=== PATIENT | male | born 1960 | race African-American/Black ===

== ENCOUNTER 2022-06-08 18:03 | Inpatient (IN) | payer OTHER, MEDICAID ==
[~2022-06-08] VITALS: Ht 180.3 cm; Wt 72.6 kg
[~2022-06-08 18:03] MED LIST: ETOMIDATE 2MG/ML 10ML VIAL IV ONE; SODIUM CHLORIDE 0.9% 10ML VIAL ONE; VECURONIUM BROMIDE 10 MG/VIAL IV ONE
[2022-06-08] MEDS ORDERED: PROPOFOL 10MG/ML 100ML 100 ML IV STA (18:54)
[2022-06-08] MEDS ORDERED: DIPHENHYDRAMINE 50MG/ML VIAL IV ONE (19:00)
[2022-06-08] MEDS ORDERED: SODIUM CHLORIDE 0.9% 1,000 ML IV ONE (19:00)
[2022-06-08] MEDS ORDERED: FAMOTIDINE 20MG/2ML VIAL IV ONE (19:00)
[2022-06-08] MEDS ORDERED: METHYLPREDNISOLONE SOD SUCC 125 MG/2 ML VIAL IV ONE (19:00)
[2022-06-08] MEDS ORDERED: EPINEPHRINE 1:1000 1 MG/ML AMP INJ ONE (19:00)
[2022-06-08] MEDS ORDERED: ONDANSETRON HCL 4MG/2ML INJ IV ONE (19:15)
[2022-06-08 19:25] LABS: BASOPHILS % 1.6 % (0.0-2.0); EOSINOPHILS % 6.2 % (0.0-5.0); HEMATOCRIT. 36.9 % (42.0-52.0); HEMOGLOBIN. 11.7 g/dL (14.0-18.0); LYMPHOCYTES % 53.6 % (20.0-50.0); MEAN CORPUSCULAR VOLUME 85.1 fL (80.0-94.0); MEAN PLATELET VOLUME 7.9 fl (7.4-10.4); NEUTROPHILS % 26.6 % (40.0-76.0); PLATELET 258 x1000/uL (130-400); RED BLOOD CELL COUNT 4.33 mill/uL (4.7-6.1); RED CELL DISTRIBUTION WIDTH 13.7 % (11.6-14.6)
[2022-06-08 19:34] LABS: CHLORIDE 109 mEq/L (98-107)
[2022-06-08] MEDS ORDERED: FAMOTIDINE 20MG/2ML VIAL IV NR (21:00)
[2022-06-08 21:24] LABS: BG BASE EXCESS -4.8 mmol/L (-2.0-2.0); BG CARBOXYHEMOGLOBIN 0.3 % (0.5-1.5); BG DEOXYHEMOGLOBIN 0.4 % (0.0-5.0); BG FRACTION INSPIRED OXYGEN 100; BG HCO3 ACT 21.1 mmol/L (22.0-26.0); BG METHEMOGLOBIN 0.3 % (0.0-1.5); BG OXYGEN SATURATION 99.6 % (92.0-98.5); BG PCO2 42.1 mmHg (35.0-45.0); BG PH 7.318 (7.350-7.450); BG PO2 393.8 mmHg (75.0-100.0); BG SAMPLE SITE LEFT RADIAL; BG TOTAL HEMOGLOBIN 11.7 g/dL (12.0-18.0); BG VENT MODE VENT - AC
[2022-06-08] MEDS ORDERED: FENTANYL 2500MCG/250ML PMX 250 ML IV ONE (21:30)
[2022-06-08] MEDS ORDERED: HYDRALAZINE 20MG/ML VIAL IV ONE (21:30)
[2022-06-08] MEDS ORDERED: MIDAZOLAM HCL 100 MG in SODIUM CHLORIDE 0.9% 80 ML IV NR (21:30)
[2022-06-08] MEDS ORDERED: MIDAZOLAM HCL 100 MG in DEXT 5% WATER 80 ML IV ONE (21:30)
[2022-06-08] MEDS ORDERED: ONDANSETRON HCL 4MG/2ML INJ IV PRN (23:30)
[2022-06-09] VITALS (63 sets, daily range): BP systolic 77–223; BP diastolic 48–119
[2022-06-09] MEDS: METHYLPREDNISOLONE SOD SUCC 125 MG/2 ML VIAL IV SCH ×3 (06:53→21:41)
[2022-06-09] MEDS ORDERED: FAMOTIDINE 20MG/2ML VIAL IV SCH (09:00)
[2022-06-09 09:09] LABS: BG BASE EXCESS -5.8 mmol/L (-2.0-2.0); BG CARBOXYHEMOGLOBIN 0.2 % (0.5-1.5); BG FRACTION INSPIRED OXYGEN 40; BG HCO3 ACT 19.5 mmol/L (22.0-26.0); BG METHEMOGLOBIN 0.2 % (0.0-1.5); BG OXYHEMOGLOBIN 98.6 % (94.0-97.0); BG PCO2 37.9 mmHg (35.0-45.0); BG PO2 149.8 mmHg (75.0-100.0); BG SAMPLE SITE RIGHT RADIAL; BG VENT MODE VENT - AC
[2022-06-09] MEDS ORDERED: CABE0.5T2 PO (09:16)
[2022-06-09] MEDS ORDERED: LISI-649 PO (09:16)
[2022-06-09] MEDS ORDERED: FENTANYL 2500MCG/250ML PMX 250 ML IV PRN (10:00)
[2022-06-09] MEDS: MIDAZOLAM HCL 100 MG in SODIUM CHLORIDE 0.9% 80 ML IV PRN (10:53)
[2022-06-09] MEDS: IPRATROPIUM/ALBUTEROL 0.5-3(2.5)MG/3ML NEB HHN SCH ×2 (10:55→13:26)
[2022-06-09 11:34] LABS: BASOPHILS % 0.3 % (0.0-2.0); HEMATOCRIT. 39.6 % (42.0-52.0); HEMOGLOBIN. 12.5 g/dL (14.0-18.0); LYMPHOCYTES % 16.8 % (20.0-50.0); MEAN CORPUSCULAR HEMOGLOBIN 27.4 pg (28.0-32.0); MEAN CORPUSCULAR VOLUME 86.9 fL (80.0-94.0); MEAN PLATELET VOLUME 8.5 fl (7.4-10.4); NEUTROPHILS % 80.9 % (40.0-76.0); PLATELET 254 x1000/uL (130-400); RED BLOOD CELL COUNT 4.56 mill/uL (4.7-6.1); RED CELL DISTRIBUTION WIDTH 14.1 % (11.6-14.6)
[2022-06-09 16:25] LABS: BG CARBOXYHEMOGLOBIN 0.3 % (0.5-1.5); BG DEOXYHEMOGLOBIN 2.5 % (0.0-5.0); BG FRACTION INSPIRED OXYGEN 40; BG HCO3 ACT 20.1 mmol/L (22.0-26.0); BG METHEMOGLOBIN 0.3 % (0.0-1.5); BG OXYGEN SATURATION 97.5 % (92.0-98.5); BG OXYHEMOGLOBIN 96.9 % (94.0-97.0); BG PCO2 46.6 mmHg (35.0-45.0); BG PH 7.253 (7.350-7.450); BG PO2 107.9 mmHg (75.0-100.0); BG SAMPLE SITE RIGHT BRACHIAL; BG TOTAL HEMOGLOBIN 13.1 g/dL (12.0-18.0); BG VENT MODE VENT - AC
[2022-06-09] MEDS ORDERED: SODIUM BICARBONATE 8.4% 1 MEQ/ML 50ML SYR IV NR ×2 (17:00→22:30)
[2022-06-09] MEDS ORDERED: NOREPINEPHRINE 8MG/250ML PMX 250 ML IV ONE (17:15)
[2022-06-09] MEDS ORDERED: LACTATED RINGERS 500 ML IV SCH (17:15)
[2022-06-09] MEDS ORDERED: PHENYLEPHRINE 50 MG in DEXT 5% WATER 245 ML IV PRN (17:15)
[2022-06-09] MEDS ORDERED: NOREPINEPHRINE 8 MG in DEXTROSE 5% WATER 250 ML IV PRN (17:30)
[2022-06-09] MEDS ORDERED: LACTATED RINGERS 500 ML IV ONE (17:30)
[2022-06-09] MEDS: MONTELUKAST SODIUM 10MG TABLET PO SCH (17:49)
[2022-06-09 18:12] LABS: BG BASE EXCESS -3.8 mmol/L (-2.0-2.0); BG CARBOXYHEMOGLOBIN 0.3 % (0.5-1.5); BG DEOXYHEMOGLOBIN 2.6 % (0.0-5.0); BG FRACTION INSPIRED OXYGEN 40; BG HCO3 ACT 23.1 mmol/L (22.0-26.0); BG METHEMOGLOBIN 0.2 % (0.0-1.5); BG OXYGEN SATURATION 97.4 % (92.0-98.5); BG OXYHEMOGLOBIN 96.9 % (94.0-97.0); BG PCO2 49.5 mmHg (35.0-45.0); BG PH 7.287 (7.350-7.450); BG PO2 108.4 mmHg (75.0-100.0); BG SAMPLE SITE RIGHT RADIAL; BG TOTAL HEMOGLOBIN 12.2 g/dL (12.0-18.0); BG VENT MODE VENT - AC
[2022-06-09] MEDS ORDERED: DOPAMINE 400MG/250ML PREMIX 250 ML IV PRN (19:15)
[2022-06-09] MEDS: ATROPINE SULFATE 1MG/ML VIAL IV NR (19:15)
[2022-06-09] MEDS: DOPAMINE 400MG/250ML PREMIX 250 ML IV PRN (19:42)
[2022-06-10] VITALS (65 sets, daily range): BP systolic 88–146; BP diastolic 59–111
[2022-06-10] MEDS: IPRATROPIUM/ALBUTEROL 0.5-3(2.5)MG/3ML NEB HHN SCH ×4 (00:25→20:57)
[2022-06-10] MEDS: DOPAMINE 400MG/250ML PREMIX 250 ML IV PRN (06:03)
[2022-06-10] MEDS: METHYLPREDNISOLONE SOD SUCC 125 MG/2 ML VIAL IV SCH ×3 (06:03→21:03)
[2022-06-10 06:24] LABS: BASOPHILS % 0.1 % (0.0-2.0); HEMATOCRIT. 36.4 % (42.0-52.0); HEMOGLOBIN. 11.5 g/dL (14.0-18.0); LYMPHOCYTES % 8.3 % (20.0-50.0); MEAN CORPUSCULAR HEMOGLOBIN 26.9 pg (28.0-32.0); MEAN CORPUSCULAR VOLUME 85.1 fL (80.0-94.0); MEAN PLATELET VOLUME 8.2 fl (7.4-10.4); MONOCYTES % 6.3 % (2.0-8.0); NEUTROPHILS % 85.3 % (40.0-76.0); PLATELET 233 x1000/uL (130-400); RED BLOOD CELL COUNT 4.28 mill/uL (4.7-6.1)
[2022-06-10] MEDS ORDERED: LIDOCAINE HCL/PF 1% 10 MG/ML 5ML VIAL ONE (08:16)
[2022-06-10 08:29] LABS: BG BASE EXCESS -1.4 mmol/L (-2.0-2.0); BG DEOXYHEMOGLOBIN 1.1 % (0.0-5.0); BG FRACTION INSPIRED OXYGEN 40; BG HCO3 ACT 22.2 mmol/L (22.0-26.0); BG METHEMOGLOBIN 0.3 % (0.0-1.5); BG OXYGEN SATURATION 98.9 % (92.0-98.5); BG OXYHEMOGLOBIN 98.6 % (94.0-97.0); BG PCO2 33.6 mmHg (35.0-45.0); BG PH 7.438 (7.350-7.450); BG PO2 169.3 mmHg (75.0-100.0); BG SAMPLE SITE RIGHT RADIAL; BG TOTAL HEMOGLOBIN 12.1 g/dL (12.0-18.0); BG VENT MODE VENT - AC
[2022-06-10] MEDS: FAMOTIDINE 20MG/2ML VIAL IV SCH (08:56)
[2022-06-10] MEDS ORDERED: CABERGOLINE 0.5 MG PO SCH (09:00)
[2022-06-10] MEDS: SODIUM CHLORIDE 0.45% 1,000 ML IV SCH ×2 (11:55→21:03)
[2022-06-10] MEDS: MONTELUKAST SODIUM 10MG TABLET PO SCH (17:02)
[2022-06-10 19:12] LABS: CLARITY URINE CLEAR (CLEAR); COLOR URINE YELLOW (YELLOW); KETONES URINE NEGATIVE (NEGATIVE); LEUKOCYTE ESTERASE URINE 2+ (NEGATIVE); NITRITE URINE NEGATIVE (NEGATIVE); OCCULT BLOOD URINE 3+ (NEGATIVE); PROTEIN URINE 1+ (NEGATIVE); SPECIFIC GRAVITY URINE 1.018 (1.005-1.030); UROBILINOGEN URINE 0.2 E.U./dL (0.2-1.0)
[2022-06-10] MEDS: ATROPINE SULFATE 1MG/ML VIAL IV NR (19:15)
[2022-06-11] VITALS (36 sets, daily range): BP systolic 87–161; BP diastolic 40–101
[2022-06-11] MEDS: IPRATROPIUM/ALBUTEROL 0.5-3(2.5)MG/3ML NEB HHN SCH ×4 (01:34→21:14)
[2022-06-11] MEDS: METHYLPREDNISOLONE SOD SUCC 125 MG/2 ML VIAL IV SCH (05:23)
[2022-06-11] MEDS: SODIUM CHLORIDE 0.45% 1,000 ML IV SCH ×3 (05:23→20:44)
[2022-06-11] MEDS: MIDAZOLAM HCL 100 MG in SODIUM CHLORIDE 0.9% 80 ML IV PRN (05:24)
[2022-06-11] MEDS: FAMOTIDINE 20MG/2ML VIAL IV SCH (08:20)
[2022-06-11 08:36] LABS: BG BASE EXCESS -2.3 mmol/L (-2.0-2.0); BG CARBOXYHEMOGLOBIN 0.3 % (0.5-1.5); BG FRACTION INSPIRED OXYGEN 35; BG HCO3 ACT 22.4 mmol/L (22.0-26.0); BG METHEMOGLOBIN 0.5 % (0.0-1.5); BG OXYHEMOGLOBIN 98.2 % (94.0-97.0); BG PCO2 37.6 mmHg (35.0-45.0); BG PH 7.392 (7.350-7.450); BG PO2 161.1 mmHg (75.0-100.0); BG SAMPLE SITE RIGHT RADIAL; BG VENT MODE VENT - AC
[2022-06-11 13:16] LABS: BG BASE EXCESS -1.7 mmol/L (-2.0-2.0); BG CARBOXYHEMOGLOBIN 0.3 % (0.5-1.5); BG DEOXYHEMOGLOBIN 2.7 % (0.0-5.0); BG HCO3 ACT 23.3 mmol/L (22.0-26.0); BG METHEMOGLOBIN 0.3 % (0.0-1.5); BG OXYGEN SATURATION 97.3 % (92.0-98.5); BG OXYHEMOGLOBIN 96.7 % (94.0-97.0); BG PCO2 40.4 mmHg (35.0-45.0); BG PH 7.379 (7.350-7.450); BG PO2 100.5 mmHg (75.0-100.0); BG SAMPLE SITE RIGHT RADIAL; BG TOTAL HEMOGLOBIN 10.4 g/dL (12.0-18.0); BG VENT MODE VENT - CPAP
[2022-06-11] MEDS ORDERED: IPRATROPIUM/ALBUTEROL 0.5-3(2.5)MG/3ML NEB HHN PRN (13:30)
[2022-06-11] MEDS: METHYLPREDNISOLONE SOD SUCC 40 MG/ML VIAL IV SCH (17:58)
[2022-06-11] MEDS: MONTELUKAST SODIUM 10MG TABLET PO SCH (18:00)
[2022-06-11] MEDS: ATROPINE SULFATE 1MG/ML VIAL IV NR (19:15)
[2022-06-12] VITALS (43 sets, daily range): BP systolic 88–155; BP diastolic 30–96
[2022-06-12] MEDS: IPRATROPIUM/ALBUTEROL 0.5-3(2.5)MG/3ML NEB HHN SCH ×4 (01:37→20:40)
[2022-06-12] MEDS: SODIUM CHLORIDE 0.45% 1,000 ML IV SCH (04:16)
[2022-06-12 05:47] LABS: HEMOGLOBIN. 9.2 g/dL (14.0-18.0); LYMPHOCYTES % 8.5 % (20.0-50.0); MEAN CORPUSCULAR HEMOGLOBIN 27.4 pg (28.0-32.0); MEAN CORPUSCULAR VOLUME 83.4 fL (80.0-94.0); MEAN PLATELET VOLUME 8.4 fl (7.4-10.4); MONOCYTES % 5.4 % (2.0-8.0); NEUTROPHILS % 86.1 % (40.0-76.0); PLATELET 160 x1000/uL (130-400); RED BLOOD CELL COUNT 3.36 mill/uL (4.7-6.1); RED CELL DISTRIBUTION WIDTH 13.4 % (11.6-14.6)
[2022-06-12 06:20] LABS: PHOSPHORUS 2.4 mg/dL (2.5-4.9)
[2022-06-12] MEDS: FAMOTIDINE 20MG/2ML VIAL IV SCH (08:20)
[2022-06-12] MEDS: METHYLPREDNISOLONE SOD SUCC 40 MG/ML VIAL IV SCH (08:21)
[2022-06-12] MEDS ORDERED: POTASSIUM-SODIUM PHOSPHATE POWDER PACKET PO NR (12:15)
[2022-06-12] MEDS: MONTELUKAST SODIUM 10MG TABLET PO SCH (18:44)
[2022-06-12] MEDS: ATROPINE SULFATE 1MG/ML VIAL IV NR (19:15)
[2022-06-13] VITALS (15 sets, daily range): BP systolic 125–173; BP diastolic 71–97
[2022-06-13] MEDS: IPRATROPIUM/ALBUTEROL 0.5-3(2.5)MG/3ML NEB HHN SCH ×2 (02:28→08:59)
[2022-06-13 06:20] LABS: BASOPHILS % 0.2 % (0.0-2.0); EOSINOPHILS % 0.1 % (0.0-5.0); HEMATOCRIT. 28.8 % (42.0-52.0); HEMOGLOBIN. 9.5 g/dL (14.0-18.0); LYMPHOCYTES % 18.4 % (20.0-50.0); MEAN CORPUSCULAR HEMOGLOBIN 27.7 pg (28.0-32.0); MEAN CORPUSCULAR VOLUME 84.1 fL (80.0-94.0); MEAN PLATELET VOLUME 8.6 fl (7.4-10.4); MONOCYTES % 6.9 % (2.0-8.0); NEUTROPHILS % 74.4 % (40.0-76.0); PLATELET 176 x1000/uL (130-400); RED BLOOD CELL COUNT 3.42 mill/uL (4.7-6.1); RED CELL DISTRIBUTION WIDTH 13.3 % (11.6-14.6)
[2022-06-13 07:00] LABS: PHOSPHORUS 1.6 mg/dL (2.5-4.9)
[2022-06-13] MEDS: FAMOTIDINE 20MG/2ML VIAL IV SCH (08:55)
[2022-06-13] MEDS ORDERED: AMLODIPINE 10MG TABLET PO SCH (09:00)
[2022-06-13] MEDS ORDERED: PREDNISONE 20MG TABLET PO SCH (09:00)
[2022-06-13] MEDS ORDERED: POTASSIUM PHOS,M-BASIC-D-BASIC 30 MMOL in SODIUM CHLORIDE 0.9% 500 ML IV SCH (11:00)
[2022-06-13] MEDS ORDERED: AMLO10TA4 MT (12:47)
== END 2022-06-13 14:00 | disposition home or self-care (01) | DRG 208 ==
LOC: ER 18:03 → MICUSO 20:15 → EDBEDREQ 20:22 → EDBEDREQTM 20:22 → CVICU 06-09 09:31
PROVIDERS: ADMIT Family Medicine; ATTEND Family Medicine
PROC: 5A1945Z Respiratory Ventilation, 24-96 Consecutive Hours (ICD-10-PCS; principal; 2022-06-09)
PROC: 0BH17EZ Insertion of Endotracheal Airway into Trachea, Via Natural or Artificial Opening (ICD-10-PCS; 2022-06-09)
PROC: 5A09357 Assistance with Respiratory Ventilation, Less than 24 Consecutive Hours, Continuous Positive Airway Pressure (ICD-10-PCS; 2022-06-09)
PROC: 02HV33Z Insertion of Infusion Device into Superior Vena Cava, Percutaneous Approach (ICD-10-PCS; 2022-06-10)
PROC: B548ZZA Ultrasonography of Superior Vena Cava, Guidance (ICD-10-PCS; 2022-06-10)
DX: J96.01 Acute respiratory failure with hypoxia (principal); N17.9 Acute kidney failure, unspecified; T78.3XXA Angioneurotic edema, initial encounter; D63.1 Anemia in chronic kidney disease; I95.2 Hypotension due to drugs; D70.9 Neutropenia, unspecified; I12.9 Hypertensive chronic kidney disease with stage 1 through stage 4 chronic kidney disease, or unspecified chronic kidney disease; N18.9 Chronic kidney disease, unspecified; R13.10 Dysphagia, unspecified; E83.39 Other disorders of phosphorus metabolism; Z96.643 Presence of artificial hip joint, bilateral; Z88.8 Allergy status to other drugs, medicaments and biological substances; Z88.0 Allergy status to penicillin
CPT/HCPCS: 31500; 36415; 36573; 36600; 71045; 76770; 80048; 80053; 81003; 82375; 82805; 83735; 83880; 84100; 84484; 85025; 86850; 86900; 87070; 87077; 92610; 93005; 94002; 94003; 94640; 97162; 99291; C1725; J0461; J1200; J1265; J2250; J2370; J2405; J2704; J2920; J2930; J3010; J3490; J7030; J7040; J7050; J7060; J7120; J7512; A4315

== ENCOUNTER 2022-06-16 06:14 | Emergency (ER) | payer OTHER, MEDICAID ==
[~2022-06-16] VITALS: Ht 180.3 cm; Wt 76.6 kg
[~2022-06-16 06:14] MED LIST changes: +AMLO10TA4 MT; +CABE0.5T2 PO; -ETOMIDATE 2MG/ML 10ML VIAL IV ONE; -SODIUM CHLORIDE 0.9% 10ML VIAL ONE; -VECURONIUM BROMIDE 10 MG/VIAL IV ONE
[2022-06-16] MEDS ORDERED: IBUPROFEN 400MG TABLET PO ONE (09:15)
[2022-06-16] MEDS ORDERED: ACETAMINOPHEN 650MG/20.3ML UDC PO ONE (09:15)
[2022-06-16 10:24] LABS: BASOPHILS % 0.1 % (0.0-2.0); EOSINOPHILS % 0.2 % (0.0-5.0); HEMATOCRIT. 35.8 % (42.0-52.0); HEMOGLOBIN. 11.4 g/dL (14.0-18.0); LYMPHOCYTES % 11.1 % (20.0-50.0); MEAN CORPUSCULAR HEMOGLOBIN 27.1 pg (28.0-32.0); MEAN CORPUSCULAR VOLUME 85.5 fL (80.0-94.0); MONOCYTES % 10.1 % (2.0-8.0); NEUTROPHILS % 78.5 % (40.0-76.0); PLATELET 233 x1000/uL (130-400); RED BLOOD CELL COUNT 4.19 mill/uL (4.7-6.1); RED CELL DISTRIBUTION WIDTH 13.9 % (11.6-14.6)
[2022-06-16 11:41] LABS: CHLORIDE 106 mEq/L (98-107)
[2022-06-16] MEDS ORDERED: IBUP-2029 MT (12:40)
[2022-06-16] MEDS ORDERED: DOXY-326 MT (12:40)
[2022-06-16 12:49] VITALS: BP 148/84
== END 2022-06-16 12:51 | disposition home or self-care (01) ==
LOC: ER 06:14
DX: R07.81 Pleurodynia (principal); R05.9 Cough, unspecified; I10 Essential (primary) hypertension; Z88.0 Allergy status to penicillin
CPT/HCPCS: 36415; 71046; 80053; 84484; 85025; 99284

== ENCOUNTER 2022-09-19 20:25 | Emergency (ER) | payer OTHER, MEDICAID ==
[~2022-09-19] VITALS: Ht 180.3 cm; Wt 77.0 kg
[~2022-09-19 20:25] MED LIST changes: +DOXY-326 MT; +IBUP-2029 MT
[2022-09-20] MEDS ORDERED: NAP5EC MT (01:09)
[2022-09-20] MEDS ORDERED: AMLO5TAB88 MT (01:14)
[2022-09-20 01:15] VITALS: BP 172/104
[2022-09-20] MEDS ORDERED: KETOROLAC 15MG/ML VIAL IM ONE (01:15)
== END 2022-09-20 01:20 | disposition home or self-care (01) ==
LOC: ER 21:45
DX: S70.01XA Contusion of right hip, initial encounter (principal); W18.39XA Other fall on same level, initial encounter; Y93.89 Activity, other specified; Y92.89 Other specified places as the place of occurrence of the external cause; Y99.8 Other external cause status; I10 Essential (primary) hypertension; Z85.9 Personal history of malignant neoplasm, unspecified; Z79.899 Other long term (current) drug therapy; Z88.0 Allergy status to penicillin
CPT/HCPCS: 73502; 96372; 99283; J1885

== ENCOUNTER 2024-01-11 23:28 | Emergency (ER) | payer OTHER, MEDICAID ==
[~2024-01-11] VITALS: Ht 180.3 cm; Wt 67.6 kg
[~2024-01-11 23:28] MED LIST changes: +AMLO5TAB88 MT; -DOXY-326 MT; +DOXY-456 MT; +NAP5EC MT
[2024-01-11 23:38] VITALS: O2SAT 100
[2024-01-12] MEDS ORDERED: CLINDAMYCIN 300 MG in DEXTROSE 5% WATER 50 ML IV ONE (00:30)
[2024-01-12] MEDS: CLINDAMYCIN 600MG PREMIX 50 ML IV NR (00:53)
[2024-01-12] MEDS: NEOMYCIN/BACITRACIN/POLYMYXIN OINT 14GM TOP ONE (00:59)
[2024-01-12] MEDS ORDERED: CLIN-194 MT (02:51)
[2024-01-12] MEDS ORDERED: IBUP-2029 MT (02:51)
[2024-01-12] MEDS ORDERED: NEOM28.37 TP (02:51)
[2024-01-12 03:19] VITALS: BP 192/101; PULSE 74; RESP 18; TEMP 98.9
== END 2024-01-12 03:35 | disposition home or self-care (01) ==
LOC: ER 23:28
DX: S01.501A Unspecified open wound of lip, initial encounter (principal); I10 Essential (primary) hypertension; K13.0 Diseases of lips; Z79.899 Other long term (current) drug therapy; X58.XXXA Exposure to other specified factors, initial encounter; Y93.89 Activity, other specified; Y92.89 Other specified places as the place of occurrence of the external cause; Y99.8 Other external cause status
CPT/HCPCS: 99284; 96365; J3490; J7060

== ENCOUNTER 2024-01-30 04:37 | Emergency (ER) | payer OTHER, MEDICAID ==
[~2024-01-30] VITALS: Ht 180.3 cm; Wt 72.5 kg
[~2024-01-30 04:37] MED LIST changes: +CLIN-194 MT; +NEOM28.37 TP
[2024-01-30 04:47] VITALS: O2SAT 98
[2024-01-30] MEDS: SODIUM CHLORIDE 0.9% 1,000 ML IV ONE (06:45)
[2024-01-30] MEDS: OXYMETAZOLINE HCL NASAL SPRAY 15ML BOTHNSTRLS STA (07:17)
[2024-01-30 07:28] LABS: BASOPHILS % 0.9 % (0.0-2.0); EOSINOPHILS % 3.3 % (0.0-5.0); HEMATOCRIT. 27.9 % (42.0-52.0); HEMOGLOBIN. 9.3 g/dL (14.0-18.0); LYMPHOCYTES % 25.4 % (20.0-50.0); MEAN CORPUSCULAR HEMOGLOBIN 28.1 pg (28.0-32.0); MEAN CORPUSCULAR HGB CONC 33.5 g/dL (31.0-37.0); MEAN PLATELET VOLUME 8.4 fl (7.4-10.4); MONOCYTES % 9.3 % (2.0-8.0); NEUTROPHILS % 61.1 % (40.0-76.0); PLATELET 234 x1000/uL (130-400); RED BLOOD CELL COUNT 3.32 mill/uL (4.7-6.1); RED CELL DISTRIBUTION WIDTH 14.9 % (11.6-14.6); WHITE BLOOD COUNT 5.3 x1000/uL (4.5-11.0)
[2024-01-30 07:37] LABS: CHLORIDE 108 mEq/L (98-107); POTASSIUM 4.6 mEq/L (3.5-5.1); SODIUM 139 mEq/L (136-145)
[2024-01-30 07:38] LABS: CALCIUM 9.5 mg/dL (8.7-10.4); CARBON DIOXIDE 25 mEq/L (21-32)
[2024-01-30 07:43] LABS: GLUCOSE 85 mg/dL (70-105); UREA NITROGEN BLOOD 37 mg/dL (9-23)
[2024-01-30 07:45] LABS: ALANINE AMINOTRANSFERASE 14 IU/L (10-49); ALBUMIN 4.2 g/dL (3.2-4.8); ASPARTATE AMINOTRANSFERASE 27 IU/L (<34); BILIRUBIN TOTAL 0.3 mg/dL (0.1-1.0); PROTEIN TOTAL 7.6 g/dL (6.0-8.3)
[2024-01-30] MEDS ORDERED: OXYM30SP26 BOTHNSTRLS (08:46)
[2024-01-30 09:17] VITALS: BP 182/94; PULSE 84; RESP 16; TEMP 98.4
== END 2024-01-30 09:00 | disposition home or self-care (01) ==
LOC: ER 04:37
DX: R04.0 Epistaxis (principal); I10 Essential (primary) hypertension; D64.9 Anemia, unspecified; N28.9 Disorder of kidney and ureter, unspecified
CPT/HCPCS: 99283; 96360; 80053; 85025; 85610; 36415; J7030